=== PATIENT | female | born 1975 | race Caucasian/White ===

== ENCOUNTER 2016-08-17 17:46 | Emergency (ER) | payer BC | END 2016-08-17 20:15 | disposition home or self-care (01) | LOC: ER 17:46 | DX: N10 Acute pyelonephritis (principal); G43.909 Migraine, unspecified, not intractable, without status migrainosus; F17.210 Nicotine dependence, cigarettes, uncomplicated; Z88.0 Allergy status to penicillin; Z90.711 Acquired absence of uterus with remaining cervical stump | CPT/HCPCS: 36415; 96361; 96374; 96375; J1885; Q9967 ==